=== PATIENT | female | born 1965 | race Caucasian/White ===

== ENCOUNTER → 2017-05-13 | Day surgery (SDC) | payer BC ==
[~2017-05-13] VITALS: Ht 160 cm; Wt 58.0 kg
[~2017-05-13] MED LIST: EXCEDRIN EXTRA1 TAB PO; PERCOCET 5-3251 EACH PO; PRILOSEC20 MG PO; PRINIVIL (ZESTRI5 MG PO
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
== END | disposition disaster alternative care site (69) ==
LOC: GPOC 05-08 13:00 → GSDC 06:26 → GPOC 13:00
PROC: 01N50ZZ Release Median Nerve, Open Approach (ICD-10-PCS; principal; 2017-05-13)
DX: G56.01 Carpal tunnel syndrome, right upper limb (principal); M19.90 Unspecified osteoarthritis, unspecified site; K21.9 Gastro-esophageal reflux disease without esophagitis; K50.90 Crohn's disease, unspecified, without complications; I10 Essential (primary) hypertension; G43.909 Migraine, unspecified, not intractable, without status migrainosus; F41.0 Panic disorder [episodic paroxysmal anxiety]; F17.210 Nicotine dependence, cigarettes, uncomplicated; Z98.51 Tubal ligation status; Z98.890 Other specified postprocedural states; Z79.82 Long term (current) use of aspirin; Z79.899 Other long term (current) drug therapy
CPT/HCPCS: J0690; J1100; J2001; J2405; J7120